=== PATIENT | male | born 1940 | race Caucasian/White ===

== ENCOUNTER 2020-05-07 18:41 | Inpatient (IN) | payer MEDICARE ==
[2020-05-07] MEDS ORDERED: SODIUM CHLORIDE 0.9% 1,000 ML IV STA (19:14)
[2020-05-07] MEDS ORDERED: KETOROLAC 15 MG/ML 1 ML VIAL IVP STA (19:16)
--- NOTE | 2020-05-07 19:18 | ED ---
SOB HPI - General Chief Complaint: Shortness of Breath Stated Complaint: Chemical Inhalation Time Seen by Provider: 05/07/20 18:50 Source: patient, RN notes reviewed Mode of arrival: ambulatory Limitations: no limitations - History of Present Illness Initial Comments: This is a 80-year-old male history of hypertension and diabetes who states he inhaled fumes from antifreeze in from his tractor that he was working on 2 days ago since that time is had burning type midsternal pain he sees more than 05/04. He denies any fevers chills or sweats he does have a cough. No phlegm production he has no prior history of any lung disease is a nonsmoker. No other complaints other modifying factors this time MD Complaint: shortness of breath, chest pain - Related Data Home Medications Medication Instructions Recorded Confirmed Centrum Silver 1 tab PO DAILY 08/16/14 08/16/14 Losartan/Hydrochlorothiazide 1 each PO DAILY 08/16/14 08/16/14 [Losartan-Hctz 100-25 mg Tab] Omeprazole [PriLOSEC] 20 mg PO AC-BRKFST 08/16/14 08/16/14 Simvastatin [Zocor] 40 mg PO HS 08/16/14 08/16/14 cloNIDine [Catapres-TTS] 1 each TRANSDERM Q7D 08/16/14 08/16/14 glipiZIDE [Glucotrol XL] 2.5 mg PO DAILY 08/16/14 08/16/14 sitaGLIPtin PHOS/metFORMIN HCL 1 each PO DAILY 08/16/14 08/16/14 [Janumet 50-1,000 mg Tablet] Previous Rx's Medication Instructions Recorded Cephalexin [Keflex] 500 mg PO Q6HR #40 cap 08/16/14 Docusate [Colace] 100 mg PO DAILY #30 capsule 08/16/14 HYDROcodone/APAP 5-325MG [[place]is 1 each PO Q4HR PRN #20 tab 08/16/14 5-325] Allergies Allergy/AdvReac Type Severity Reaction Status Date / Time No Known Allergies Allergy Verified 05/07/20 18:43 Review of Systems ROS Statement: Those systems with pertinent positive or pertinent negative responses have been documented in the HPI. ROS Other: All systems not noted in ROS Statement are negative. Past Medical History Past Medical History: Diabetes Mellitus, GERD/Reflux, Hyperlipidemia, Hypertension History of Any Multi-Drug Resistant Organisms: None Reported Past Surgical History: Back Surgery, Orthopedic Surgery Additional Past Surgical History / Comment(s): neck, shoulder Past Psychological History: No Psychological Hx Reported Smoking Status: Never smoker Past Alcohol Use History: None Reported Past Drug Use History: None Reported General Exam - General Exam Comments Initial Comments: This is a well-developed well-nourished awake alert oriented 3 male Limitations: no limitations General appearance: alert, anxious Head exam: Present: atraumatic, normocephalic, normal inspection Eye exam: Present: normal appearance, PERRL, EOMI. Absent: scleral icterus, conjunctival injection, periorbital swelling ENT exam: Present: normal exam, mucous membranes moist Neck exam: Present: normal inspection, full ROM. Absent: tenderness, menin gismus, lymphadenopathy Respiratory exam: Present: rales, decreased breath sounds. Absent: respiratory distress, wheezes, rhonchi, stridor Cardiovascular Exam: Present: normal rhythm, tachycardia, normal heart sounds. Absent: systolic murmur, diastolic murmur, rubs, gallop, clicks GI/Abdominal exam: Present: soft, normal bowel sounds. Absent: distended, tenderness, guarding, rebound, rigid Extremities exam: Present: normal inspection, full ROM, normal capillary refill. Absent: tenderness, pedal edema, joint swelling, calf tenderness Back exam: Present: normal inspection Neurological exam: Present: alert, oriented X3, CN II-XII intact Psychiatric exam: Present: normal affect, normal mood Skin exam: Present: warm, dry, intact, normal color. Absent: rash Course Vital Signs 05/07/20 05/07/20 05/07/20 18:44 19:42 21:09 Temperature 97.9 F Pulse Rate 114 H 96 81 Respiratory 18 20 18 Rate Blood Pressure 170/78 134/77 128/73 O2 Sat by Pulse 94 L 94 L 94 L Oximetry Medical Decision Making - Medical Decision Making I did discuss findings with the patient he will be admitted for treatment of bronchospasm and pneumonitis and pneumonia the case was discussed with Dr. Capone - Lab Data Result diagrams: 05/07/20 19:27 05/07/20 19:27 Lab Results 05/07/20 05/07/20 05/07/20 Range/Units 19:27 19:27 19:27 WBC 6.7 (3.8-10.6) k/uL RBC 4.28 L (4.30-5.90) m/uL Hgb 13.1 (13.0-17.5) gm/dL Hct 37.2 L (39.0-53.0) % MCV 86.9 (80.0-100.0) fL MCH 30.6 (25.0-35.0) pg MCHC 35.2 (31.0-37.0) g/dL RDW 12.0 (11.5-15.5) % Plt Count 339 (150-450) k/uL Neutrophils % 82 % Lymphocytes % 6 % Monocytes % 9 % Eosinophils % 0 % Basophils % 1 % Neutrophils # 5.5 (1.3-7.7) k/uL Lymphocytes # 0.4 L (1.0-4.8) k/uL Monocytes # 0.6 (0-1.0) k/uL Eosinophils # 0.0 (0-0.7) k/uL Basophils # 0.1 (0-0.2) k/uL PT 10.2 (9.0-12.0) sec INR 1.0 (<1.2) APTT 24.4 (22.0-30.0) sec D-Dimer 1.63 H (<0.60) mg/L FEU Sodium 127 L (137-145) mmol/L Potassium 3.7 (3.5-5.1) mmol/L Chloride 93 L (98-107) mmol/L Carbon Dioxide 24 (22-30) mmol/L Anion Gap 10 mmol/L BUN 14 (9-20) mg/dL Creatinine 0.92 (0.66-1.25) mg/dL Est GFR (CKD-EPI)AfAm >90 (>60 ml/min/1.73 sqM) Est GFR (CKD-EPI)NonAf 80 (>60 ml/min/1.73 sqM) Glucose 158 H (74-99) mg/dL Plasma Lactic Acid Antonio (0.7-2.0) mmol/L Calcium 7.8 L (8.4-10.2) mg/dL Magnesium 1.7 (1.6-2.3) mg/dL Total Bilirubin 1.8 H (0.2-1.3) mg/dL AST 56 (17-59) U/L ALT 39 (4-49) U/L Alkaline Phosphatase 66 (38-126) U/L Creatine Kinase 382 H (55-170) U/L Troponin I (0.000-0.034) ng/mL NT-Pro-B Natriuret Pep pg/mL Total Protein 6.4 (6.3-8.2) g/dL Albumin 3.5 (3.5-5.0) g/dL 05/07/20 05/07/20 05/07/20 Range/Units 19:27 19:27 19:27 WBC (3.8-10.6) k/uL RBC (4.30-5.90) m/uL Hgb (13.0-17.5) gm/dL Hct (39.0-53.0) % MCV (80.0-100.0) fL MCH (25.0-35.0) pg MCHC (31.0-37.0) g/dL RDW (11.5-15.5) % Plt Count (150-450) k/uL Neutrophils % % Lymphocytes % % Monocytes % % Eosinophils % % Basophils % % Neutrophils # (1.3-7.7) k/uL Lymphocytes # (1.0-4.8) k/uL Monocytes # (0-1.0) k/uL Eosinophils # (0-0.7) k/uL Basophils # (0-0.2) k/uL PT (9.0-12.0) sec INR (<1.2) APTT (22.0-30.0) sec D-Dimer (<0.60) mg/L FEU Sodium (137-145) mmol/L Potassium (3.5-5.1) mmol/L Chloride (98-107) mmol/L Carbon Dioxide (22-30) mmol/L Anion Gap mmol/L BUN (9-20) mg/dL Creatinine (0.66-1.25) mg/dL Est GFR (CKD-EPI)AfAm (>60 ml/min/1.73 sqM) Est GFR (CKD-EPI)NonAf (>60 ml/min/1.73 sqM) Glucose (74-99) mg/dL Plasma Lactic Acid Antonio 1.6 (0.7-2.0) mmol/L Calcium (8.4-10.2) mg/dL Magnesium (1.6-2.3) mg/dL Total Bilirubin (0.2-1.3) mg/dL AST (17-59) U/L ALT (4-49) U/L Alkaline Phosphatase (38-126) U/L Creatine Kinase (55-170) U/L Troponin I 0.018 (0.000-0.034) ng/mL NT-Pro-B Natriuret Pep 590 pg/mL Total Protein (6.3-8.2) g/dL Albumin (3.5-5.0) g/dL - EKG Data -: EKG Interpreted by Me EKG Comments: Sinus rhythm of 99. Interval was 74 QRS duration 94 QT since QTC 350/449 nonspecific anterior configuration - Radiology Data Radiology results: report reviewed (I did review the imaging and report evidence a left lower lobe infiltrate on x-ray CAT scan however reveals evidence of bilateral infiltrates no evidence of PE.), image reviewed Disposition Clinical Impression: Community acquired pneumonia, Pneumonitis, Bronchospasm, acute Disposition: ADMITTED IP TO THIS HOSP Condition: Fair Referrals: Nonstaff,Physician [Primary Care Provider] - 1-2 days
[2020-05-07 20:06] LABS: ALT 39 U/L (4-49); AST 56 U/L (17-59); African American GFR (CKD) >90 (>60 ml/min/1.73 sqM); Albumin 3.5 g/dL (3.5-5.0); Alkaline Phosphatase 66 U/L (38-126); Anion Gap 10 mmol/L; Blood Urea Nitrogen 14 mg/dL (9-20); Calcium 7.8 mg/dL (8.4-10.2); Carbon Dioxide 24 mmol/L (22-30); Chloride 93 mmol/L (98-107); Creatine Kinase 382 U/L (55-170); Glucose 158 mg/dL (74-99); Magnesium 1.7 mg/dL (1.6-2.3); Non-African American GFR(CKD) 80 (>60 ml/min/1.73 sqM); Partial Thromboplastin Time 24.4 sec (22.0-30.0); Potassium 3.7 mmol/L (3.5-5.1); Prothrombin Time 10.2 sec (9.0-12.0); Sodium 127 mmol/L (137-145); Total Bilirubin 1.8 mg/dL (0.2-1.3); Total Protein 6.4 g/dL (6.3-8.2)
[2020-05-07 20:11] LABS: D-Dimer 1.63 mg/L FEU (<0.60)
[2020-05-07 20:21] LABS: Basophils # (A) 0.1 k/uL (0-0.2); Basophils % (A) 1 %; Eosinophils % (A) 0 %; HCT 37.2 % (39.0-53.0); HGB 13.1 gm/dL (13.0-17.5); Lymphocytes # (A) 0.4 k/uL (1.0-4.8); Lymphocytes % (A) 6 %; MCH 30.6 pg (25.0-35.0); MCHC 35.2 g/dL (31.0-37.0); MCV 86.9 fL (80.0-100.0); Mean Platelet Volume 7.3; Monocytes # (A) 0.6 k/uL (0-1.0); Monocytes % (A) 9 %; Neutrophils # (A) 5.5 k/uL (1.3-7.7); Neutrophils % (A) 82 %; Platelet Count 339 k/uL (150-450); RBC 4.28 m/uL (4.30-5.90); WBC 6.7 k/uL (3.8-10.6)
--- NOTE | 2020-05-07 20:25 | XR ---
EXAMINATION TYPE: XR chest 2V DATE OF EXAM: 05/07/2020 COMPARISON: NONE HISTORY: Difficulty breathing. Dizziness TECHNIQUE: 2 views FINDINGS: There is no heart failure. There is some coarsening of the lung markings in the periphery o f both lungs. There is probably some mild airspace peripheral pulmonary infiltrate on the left side. There are chest leads. There is cervical spine fusion surgery. There is no pleural effusion. IMPRESSION: Left side mild peripheral pulmonary infiltrate. No heart failure.
--- NOTE | 2020-05-07 21:14 | CT ---
EXAMINATION TYPE: CT angio chest DATE OF EXAM: 05/07/2020 COMPARISON: None HISTORY: chest pain, elevated d-dimer CT DLP: 352.7 mGycm Automated exposure control for dose reduction was used. CONTRAST: Performed with IV Contrast, patient injected with 100 mL of Isovue 370. There are 3-D post processed images. There is patchy pulmonary airspace infiltrates and atelectasis in the mid and lower lung smith. Hear t is borderline enlarged. There is no pericardial effusion. There is no pleural effusion. There is no mediastinal adenopathy. There is normal contrast opacification of the pulmonary arteries. There are no filling defects. There are no hilar masses. Thoracic aorta shows no sign of aneurysm or dissection. There is spurring in the thoracic spine. Sternum is intact. The ribs appear intact. IMPRESSION: Patchy pulmonary bilateral airspace infiltrates. No evidence of pulmonary embolism.
[2020-05-07] MEDS ORDERED: PNEUMONIA PROTOCOL UTILIZED 1 EACH MISC PO PRN (21:20)
[2020-05-07] MEDS ORDERED: AZITHROMYCIN 500 MG in SODIUM CHLORIDE 0.9% 250 ML IVPB STA (21:20)
[2020-05-07] MEDS ORDERED: HYDROcodone/APAP 5-325MG 1 EACH TAB PO PRN (21:21)
[2020-05-07] MEDS ORDERED: IPRATROPIUM-ALBUTEROL 3 ML NEB INHALATION PRN (22:00)
[2020-05-07] MEDS: SODIUM CHLORIDE 0.9% 1,000 ML IV SCH (23:00)
[2020-05-08] MEDS: PANTOPRAZOLE 40 MG TABLET PO SCH (06:44)
[2020-05-08 06:50] LABS: Glucose,Whole Blood 111 mg/dL (75-99)
[2020-05-08] MEDS: SODIUM CHLORIDE 0.9% 1,000 ML IV SCH ×2 (08:11→08:12)
[2020-05-08] MEDS: INSULIN ASPART (NovoLOG) 100 UNIT/ML VIAL SQ SCH ×4 (08:11→20:42)
[2020-05-08] MEDS ORDERED: LOSARTAN-HCTZ 50-12.5 MG 1 EACH TAB PO SCH (09:00)
[2020-05-08] MEDS: metFORMIN 500 MG TAB PO SCH (09:32)
[2020-05-08] MEDS: MULTIVITAMINS, THERA 1 EACH TAB PO SCH (09:32)
--- NOTE | 2020-05-08 09:36 | XR ---
EXAMINATION TYPE: XR chest 2V DATE OF EXAM: 05/08/2020 COMPARISON: 05/07/2020 TECHNIQUE: PA and lateral views submitted. HISTORY: Cough possible pneumonia FINDINGS: Heart size normal. Coarsened interstitium seen. No pleural effusion or pneumothorax. Hypertrophic and degenerative change of the spine. IMPRESSION: 1. Correlate for atypical or interstitial pneumonitis or pneumonia.
[2020-05-08] MEDS: LINAGLIPTIN 5 MG TABLET PO SCH (10:42)
[2020-05-08] MEDS: DOCUSATE 100 MG CAP PO SCH (10:42)
[2020-05-08] MEDS ORDERED: INFLUENZA VACCINE (6 MOS+) 60 MCG/0.5 ML SYRINGE IM ONE (11:10)
[2020-05-08 11:35] LABS: Glucose,Whole Blood 181 mg/dL (75-99)
[2020-05-08] MEDS ORDERED: ALPRAZolam 0.25 MG TAB PO PRN (12:04)
[2020-05-08] MEDS ORDERED: MAGNESIUM SULFATE-D5W PMX 1 GM in DEXTROSE/WATER 1 100ML.BAG IVPB ONE (12:30)
--- NOTE | 2020-05-08 14:26 | P.HPIM ---
History of Present Illness 74-year-old pleasant male came in with complains of shortness of breath after inhaling anti-freeze fumes, antifreeze did fell on the tractor which the lead to fuming and patient did inhale that and since then patient was having shortness of breath and came. Patient had a CT angios the chest which didn't show significant bilateral infiltrates without any bronchogram no evidence of pneumonia patient denied any chest pain patient denied any cough fever chills. Patient was having some nausea and vomiting which improved at this time. Review of Systems REVIEW OF SYSTEMS: CONSTITUTIONAL: No fever, no malaise, no fatigue. HEENT: No recent visual problems or hearing problems. Denied any sore throat. CARDIOVASCULAR: No chest pain, orthopnea, PND, no palpitations, no syncope. PULMONARY: no hemoptysis. GASTROINTESTINAL: As mentioned in HPI NEUROLOGICAL: No headaches, no weakness, no numbness. HEMATOLOGICAL: Denies any bleeding or petechiae. GENITOURINARY: Denies any burning micturition, frequency, or urgency. MUSCULOSKELETAL/RHEUMATOLOGICAL: Denies any joint pain, swelling, or any muscle pain. ENDOCRINE: Denies any polyuria or polydipsia. The rest of the 14-point review of systems is negative. Past Medical History Past Medical History: Diabetes Mellitus, GERD/Reflux, Hyperlipidemia, Hypertension, Osteoarthritis (OA), Vascular Disorder Additional Past Medical History / Comment(s): NIDDM type II, benign colon edgar yps, bronchitis as a child, arthritis bilateral knees, bilateral leg varicosities. History of Any Multi-Drug Resistant Organisms: None Reported Past Surgical History: Back Surgery, Orthopedic Surgery Additional Past Surgical History / Comment(s): Cervical surgery/plate, 2 lower back surgeries, L shoulder rotator cuff, colonoscopies/benign polypectomies. Additional Past Anesthesia/Blood Transfusion Reaction / Comment(s): Pt had difficulty urinating after back surgery. Pt has clausterphobia. Smoking Status: Former smoker - Past Family History Father History Unknown: Yes Mother Family Medical History: Cancer Additional Family Medical History / Comment(s): Breast cancer. Medications and Allergies Home Medications Medication Instructions Recorded Confirmed Type Losartan/Hydrochlorothiazide 1 each PO DAILY 08/16/14 05/07/20 History [Losartan-Hctz 100-25 mg Tab] Simvastatin [Zocor] 40 mg PO HS 08/16/14 05/07/20 History cloNIDine [Catapres-TTS] 1 patch TRANSDERM Q7D 08/16/14 05/07/20 History sitaGLIPtin PHOS/metFORMIN HCL 1 each PO BID 08/16/14 05/07/20 History [Janumet 50-1,000 mg Tablet] Pantoprazole [Protonix] 40 mg PO DAILY 05/07/20 05/07/20 History glipiZIDE XL [Glucotrol XL] 5 mg PO DAILY 05/07/20 05/07/20 History Allergies Allergy/AdvReac Type Severity Reaction Status Date / Time No Known Allergies Allergy Verified 05/07/20 23:07 Physical Exam Vitals: Vital Signs Temp Pulse Pulse Resp BP BP Pulse Ox 05/08/20 07:00 99.6 F 96 16 126/66 93 L 05/08/20 06:46 99 F 88 18 142/80 05/08/20 05:36 99.5 F 92 18 139/77 92 L 05/08/20 04:00 82 18 05/08/20 03:00 84 18 143/78 05/08/20 02:00 80 18 05/07/20 22:08 86 18 136/78 96 05/07/20 21:09 81 18 128/73 94 L 05/07/20 19:42 96 20 134/77 94 L 05/07/20 18:44 97.9 F 114 H 18 170/78 94 L Intake and Output 05/07/20 05/08/20 05/08/20 22:59 06:59 14:59 Intake Total 540 Output Total 2 Balance 538 Intake: Oral 540 Output: Stool 2 Other: Voiding Method Toilet Urinal # Voids 3 Weight 90.718 kg 90.718 kg PHYSICAL EXAMINATION: GENERAL: The patient is alert and oriented x3, not in any acute distress. Well developed, well nourished. HEENT: Pupils are round and equally reacting to light. EOMI. No scleral icterus. No conjunctival pallor. Normocephalic, atraumatic. No pharyngeal erythema. No thyromegaly. CARDIOVASCULAR: S1 and S2 present. No murmurs, rubs, or gallops. PULMONARY: Chest is clear to auscultation, no wheezing or crackles. ABDOMEN: Soft, nontender, nondistended, normoactive bowel sounds. No palpable organomegaly. MUSCULOSKELETAL: No joint swelling or deformity. EXTREMITIES: No cyanosis, clubbing, or pedal edema. NEUROLOGICAL: Gross neurological examination did not reveal any focal deficits. SKIN: No rashes. Results CBC & Chem 7: 05/07/20 19:27 05/07/20 19:27 Labs: Abnormal Lab Results - Last 24 Hours (Table) 05/07/20 05/07/20 05/07/20 Range/Units 19:27 19:27 19:27 RBC 4.28 L (4.30-5.90) m/uL Hct 37.2 L (39.0-53.0) % Lymphocytes # 0.4 L (1.0-4.8) k/uL D-Dimer 1.63 H (<0.60) mg/L FEU Sodium 127 L (137-145) mmol/L Chloride 93 L (98-107) mmol/L Glucose 158 H (74-99) mg/dL POC Glucose (mg/dL) (75-99) mg/dL Calcium 7.8 L (8.4-10.2) mg/dL Total Bilirubin 1.8 H (0.2-1.3) mg/dL Creatine Kinase 382 H (55-170) U/L 05/08/20 05/08/20 Range/Units 06:48 11:34 RBC (4.30-5.90) m/uL Hct (39.0-53.0) % Lymphocytes # (1.0-4.8) k/uL D-Dimer (<0.60) mg/L FEU Sodium (137-145) mmol/L Chloride (98-107) mmol/L Glucose (74-99) mg/dL POC Glucose (mg/dL) 111 H 181 H (75-99) mg/dL Calcium (8.4-10.2) mg/dL Total Bilirubin (0.2-1.3) mg/dL Creatine Kinase (55-170) U/L Thrombosis Risk Factor Assmnt - Choose All That Apply Any of the Below Risk Factors Present?: Yes Each Factor Represents 1 point: Obesity (BMI >25), Serious lung disease incl. pneumonia (< 1month) Other Risk Factors: Yes Each Risk Factor Represents 3 Points: Age 75 years or older Other congenital or acquired thrombophilia - If yes, enter type in comment: No Thrombosis Risk Factor Assessment Total Risk Factor Score: 5 Thrombosis Risk Factor Assessment Level: High Risk Assessment and Plan Plan: -Chemical pneumonitis: Secondary to fever and inhalation anti-medics will not be beneficial and medics will be discontinued and patient the will be continued with supportive care Cannula oxygen as needed patient is not wheezing at this time. If needed we can use steroids. -Hyponatremia secondary to nausea vomiting: Patient will be started on Protonix and Maalox. Patient will be continued on IV fluids patient has hypovolemic hyponatremia -Gastroesophageal reflux disease -Type 2 diabetes mellitus -Hypertension -Hyperlipidemia -Peripheral vascular disease -DVT prophylaxis with Lovenox and GI prophylaxis with Protonix. Patient probably can be discharged tomorrow once his hyponatremia improves and if his respiratory status remained stable
[2020-05-08] MEDS: SIMETHICONE 80 MG CHEWABLE PO SCH ×3 (14:27→21:55)
[2020-05-08] MEDS ORDERED: ACETAMINOPHEN TAB 325 MG TAB PO STA (15:59)
[2020-05-08 17:07] LABS: Glucose,Whole Blood 102 mg/dL (75-99)
[2020-05-08 20:14] LABS: Glucose,Whole Blood 197 mg/dL (75-99)
[2020-05-08] MEDS: ATORVASTATIN 20 MG TAB PO SCH (21:55)
[2020-05-08] MEDS ORDERED: AZITHROMYCIN 500 MG TAB PO SCH (22:00)
[2020-05-09] MEDS: SODIUM CHLORIDE 0.9% 1,000 ML IV SCH ×2 (05:15→14:51)
[2020-05-09] MEDS ORDERED: ACETAMINOPHEN TAB 325 MG TAB PO PRN (06:32)
[2020-05-09 06:50] LABS: Glucose,Whole Blood 197 mg/dL (75-99)
[2020-05-09] MEDS: DOCUSATE 100 MG CAP PO SCH (07:13)
[2020-05-09] MEDS ORDERED: ONDANSETRON 4 MG/2 ML VIAL IVP PRN (07:37)
[2020-05-09] MEDS: INSULIN ASPART (NovoLOG) 100 UNIT/ML VIAL SQ SCH ×4 (07:38→21:10)
[2020-05-09] MEDS: PANTOPRAZOLE 40 MG TABLET PO SCH (07:38)
[2020-05-09] MEDS: metFORMIN 500 MG TAB PO SCH (07:38)
[2020-05-09] MEDS: SIMETHICONE 80 MG CHEWABLE PO SCH ×4 (07:38→21:09)
[2020-05-09] MEDS: ENOXAPARIN 40 MG/0.4 ML SYRINGE SQ SCH (07:38)
[2020-05-09] MEDS: MULTIVITAMINS, THERA 1 EACH TAB PO SCH (07:38)
[2020-05-09] MEDS: LINAGLIPTIN 5 MG TABLET PO SCH (07:39)
[2020-05-09 09:53] LABS: African American GFR (CKD) 94.5 (60.0-200.0); Anion Gap 11.9 mmol/L (4.00-12.00); BUN/Creat Ratio 11.11 Ratio (12.00-20.00); Calcium 7.4 mg/dL (8.7-10.3); Carbon Dioxide 23.1 mmol/L (21.6-31.8); Non-African American GFR(CKD) 81.5 (60.0-200.0)
--- NOTE | 2020-05-09 11:22 | P.PN ---
Subjective 82-year-old male is admitted after inhalation of antifreeze. Patient is believed to have a chemical pneumonitis because of which initially I didn't start him on antibiotics although his antibiotics were discontinued from ER. Patient started having fever multiple febrile episodes started having diarrhea C. diff is being obtained patient will be tested for Covid 19. Will be continued on Rocephin. Infectious disease will be consulted. Patient doesn't feel well at this time is diaphoretic. We may need pulmonary consultation as well. Constitutional: As mentioned in HPI Cardio vascular: denied any chest pain, palpitations Gastrointestinal denied any nausea vomiting Pulmonary: As mentioned in HPI Neurologic denied any new focal deficits All inpatient medications were reviewed and appropriate changes in these medications as dictated in the interval history and assessment and plan. Objective - Vital Signs Vital signs: Vital Signs Temp 99.5 F 05/09/20 07:22 Pulse 100 05/09/20 07:22 Resp 16 05/09/20 08:00 BP 154/69 05/09/20 07:22 Pulse Ox 91 L 05/09/20 07:22 Intake & Output 05/08/20 05/09/20 05/09/20 18:59 06:59 18:59 Intake Total 540 540 Output Total 4 Balance 536 540 Weight 90.718 kg Intake: Oral 540 540 Output: Stool 4 Other: Voiding Method Toilet Urinal # Voids 3 3 # Bowel Movements 3 - Exam PHYSICAL EXAMINATION: GENERAL: The patient is alert and oriented x3, not in any acute distress. Well developed, well nourished. She does diaphragmatic fatigue HEENT: Pupils are round and equally reacting to light. EOMI. No scleral icterus. No conjunctival pallor. Normocephalic, atraumatic. No pharyngeal erythema. No thyromegaly. CARDIOVASCULAR: S1 and S2 present. No murmurs, rubs, or gallops. PULMONARY: Chest is clear to auscultation, no wheezing or crackles. ABDOMEN: Soft, nontender, nondistended, normoactive bowel sounds. No palpable organomegaly. MUSCULOSKELETAL: No joint swelling or deformity. EXTREMITIES: No cyanosis, clubbing, or pedal edema. NEUROLOGICAL: Gross neurological examination did not reveal any focal deficits. SKIN: No rashes. - Labs CBC & Chem 7: 05/07/20 19:27 05/09/20 05:35 Labs: Abnormal Lab Results - Last 24 Hours (Table) 05/08/20 05/08/20 05/08/20 Range/Units 11:34 17:05 20:12 Sodium (135-145) mmol/L BUN/Creatinine Ratio (12.00-20.00) Ratio Glucose (70-110) mg/dL POC Glucose (mg/dL) 181 H 102 H 197 H (75-99) mg/dL Calcium (8.7-10.3) mg/dL 05/09/20 05/09/20 Range/Units 05:35 06:47 Sodium 131 L (135-145) mmol/L BUN/Creatinine Ratio 11.11 L (12.00-20.00) Ratio Glucose 178 H (70-110) mg/dL POC Glucose (mg/dL) 197 H (75-99) mg/dL Calcium 7.4 L (8.7-10.3) mg/dL Microbiology - Last 24 Hours (Table) 05/07/20 21:08 Blood Culture - Preliminary Blood No Growth after 24 hours Assessment and Plan Plan: -Sepsis: Patient was initially believed to have chemical pneumonitis, patient will continued on Rocephin will be treated for pneumonia and other sources of sepsis is being C. diff colitis which will be ruled out patient was having significant diarrhea IV fluids will be continued. Patient will be tested for Covid 19 -Chemical pneumonitis: Secondary to anti-freeze inhalation , patient can have fever with antifreeze inhalation. Continue with respirator support will consult pulmonary -Hyponatremia secondary to nausea vomiting and diarrhea: Hypervolemic hyponatremia IV fluids and monitor. -Gastroesophageal reflux disease -Type 2 diabetes mellitus -Hypertension -Hyperlipidemia -Peripheral vascular disease -DVT prophylaxis with Lovenox and GI prophylaxis with Protonix. Patient probably can be discharged tomorrow once his hyponatremia improves and if his respiratory status remained stable
[2020-05-09 11:36] LABS: Glucose,Whole Blood 177 mg/dL (75-99)
[2020-05-09 11:47] LABS: Basophils % (A) 1 %; Eosinophils % (A) 0 %; HCT 38.2 % (39.0-53.0); HGB 12.5 gm/dL (13.0-17.5); Lymphocytes # (A) 0.4 k/uL (1.0-4.8); Lymphocytes % (A) 7 %; MCH 29.6 pg (25.0-35.0); MCHC 32.8 g/dL (31.0-37.0); MCV 90.3 fL (80.0-100.0); Mean Platelet Volume 6.9; Monocytes # (A) 0.4 k/uL (0-1.0); Monocytes % (A) 7 %; Neutrophils # (A) 5.5 k/uL (1.3-7.7); Neutrophils % (A) 84 %; Platelet Count 428 k/uL (150-450); RBC 4.23 m/uL (4.30-5.90); RDW 12.7 % (11.5-15.5); WBC 6.5 k/uL (3.8-10.6)
[2020-05-09 12:02] LABS: C Reactive Protein 77.7 mg/L (<10.0)
[2020-05-09] MEDS: dexAMETHasone 4 MG TAB PO SCH (12:39)
--- NOTE | 2020-05-09 13:47 | P.CNPUL ---
History of Present Illness Consult date: 05/09/20 Requesting physician: Elizabeth Chery Reason for consult: dyspnea, cough Chief complaint: Dyspnea, cough, fever History of present illness: 80-year-old white male patient, with past history of hypertension, diabetes mellitus type 2, hyperlipidemia, GERD/reflux, lifetime nonsmoker, who presented to the emergency department on 05/07/2020 for evaluation of shortness of breath, cough with the onset of 2 days prior to presentation. Apparently patient had inhaled some fumes from the antifreeze from his tractor when he was working on it. Immediately after she started experiencing burning in his midsternal pain and his esophagus, which had improved. He denied any fever or chills, denied an y sweats, he did develop a cough, was nonproductive. Has no history of chronic lung disease and he is a lifetime nonsmoker. No nausea vomiting or diarrhea, he denies any cold 19 exposure. In the following 2 days patient became short of breath, started coughing, became weak, started having runs of diarrhea and generalized aches. [facility]ency department chest x-ray shows mild peripheral pulmonary infiltrate in the left lung. He CBC was reviewed showing no leukocytosis, but did show lymphopenia with the lymphocyte count of 0.4, d-dimer was elevated at 1.63, sodium was 127, potassium 3.7, chloride is 93, renal profile was within normal limits. Rectal Was 1.6, LDH was elevated at 860, troponin was 0.018, proBNP was 590, C. diff was negative. Patient is being tested for COVID 19, and the results are pending at this time, patient is on room air, the pulse ox of 93%, patient was initially afebrile, did develop fever overnight, with a T-max of 101.1F. Antibiotics in the form of Rocephin, pat ient will be started on oral Decadron, he is on breathing treatments, he is on prophylactic dose of Lovenox. CTA chest was completed in view of elevated d- dimer and chest discomfort on presentation showing patchy pulmonary bilateral airspace infiltrates, but no evidence of pulmonary embolism. Review of Systems All systems: negative Constitutional: Denies chills, Denies fever Eyes: denies blurred vision, denies pain Ears, nose, mouth and throat: Denies headache, Denies sore throat Cardiovascular: Reports chest pain, Denies shortness of breath Respiratory: Reports cough, Reports dyspnea Gastrointestinal: Denies abdominal pain, Denies diarrhea, Denies nausea, Denies vomiting Musculoskeletal: Denies myalgias Integumentary: Denies pruritus, Denies rash Neurological: Denies numbness, Denies weakness Psychiatric: Denies anxiety, Denies depression Endocrine: Denies fatigue, Denies weight change Past Medical History Past Medical History: Diabetes Mellitus, GERD/Reflux, Hyperlipidemia, Hypertension, Osteoarthritis (OA), Vascular Disorder Additional Past Medical History / Comment(s): NIDDM type II, benign colon polyps, bronchitis as a child, arthritis bilateral knees, bilateral leg varicosities. History of Any Multi-Drug Resistant Organisms: None Reported Past Surgical History: Back Surgery, Orthopedic Surgery Additional Past Surgical History / Comment(s): Cervical surgery/plate, 2 lower back surgeries, L shoulder rotator cuff, colonoscopies/benign polypectomies. Additional Past Anesthesia/Blood Transfusion Reaction / Comment(s): Pt had difficulty urinating after back surgery. Pt has clausterphobia. Smoking Status: Former smoker - Past Family History Father History Unknown: Yes Mother Family Medical History: Cancer Additional Family Medical History / Comment(s): Breast cancer. Medications and Allergies Home Medications Medication Instructions Recorded Confirmed Type Losartan/Hydrochlorothiazide 1 each PO DAILY 08/16/14 05/07/20 History [Losartan-Hctz 100-25 mg Tab] Simvastatin [Zocor] 40 mg PO HS 08/16/14 05/07/20 History cloNIDine [Catapres-TTS] 1 patch TRANSDERM Q7D 08/16/14 05/07/20 History sitaGLIPtin PHOS/metFORMIN HCL 1 each PO BID 08/16/14 05/07/20 History [Janumet 50-1,000 mg Tablet] Pantoprazole [Protonix] 40 mg PO DAILY 05/07/20 05/07/20 History glipiZIDE XL [Glucotrol XL] 5 mg PO DAILY 05/07/20 05/07/20 History Allergies Allergy/AdvReac Type Severity Reaction Status Date / Time No Known Allergies Allergy Verified 05/07/20 23:07 Physical Exam Vitals: Vital Signs Temp Pulse Pulse Pulse Resp BP Pulse Ox 05/09/20 08:00 16 05/09/20 07:22 99.5 F 100 16 154/69 91 L 05/09/20 00:56 101.0 F H 109 H 165/93 93 L 05/08/20 23:11 16 05/08/20 19:05 99.4 F 99 149/79 95 05/08/20 16:15 100.6 F H 87 16 118/64 96 05/08/20 16:00 101.1 F H 05/08/20 15:45 90 16 05/08/20 15:38 91 16 05/08/20 15:00 100.9 F H 101 H 18 146/73 96 05/08/20 14:32 96 16 Intake and Output 05/08/20 05/09/20 05/09/20 22:59 06:59 14:59 Intake Total 540 Balance 540 Intake: Oral 540 Other: # Voids 2 3 # Bowel Movements 3 GENERAL EXAM: Alert, very pleasant, white male, on room air, with pulse ox of 91-93% comfortable in no apparent distress. HEAD: Normocephalic/atraumatic. EYES: Normal reaction of pupils, equal size. Conjunctiva pink, sclera white. NOSE: Clear with pink turbinates. THROAT: No erythema or exudates. NECK: No masses, no JVD, no thyroid enlargement, no adenopathy. CHEST: No chest wall deformity. Symmetrical expansion. LUNGS: Equal air entry with no crackles, wheeze, rhonchi or dullness. CVS: Regular rate and rhythm, normal S1 and S2, no gallops, no murmurs, no rubs ABDOMEN: Soft, nontender. No hepatosplenomegaly, normal bowel sounds, no guarding or rigidity. EXTREMITIES: No clubbing, no edema, no cyanosis, 2+ pulses and upper and lower extremities. MUSCULOSKELETAL: Muscle strength and tone normal. SPINE: No scoliosis or deformity SKIN: No rashes CENTRAL NERVOUS SYSTEM: Alert and oriented -3. No focal deficits, tone is normal in all 4 extremities. PSYCHIATRIC: Alert and oriented -3. Appropriate affect. Intact judgment and insight. Results - Laboratory Findings CBC and BMP: 05/09/20 11:19 05/09/20 05:35 PT/INR, D-dimer PT 10.2 sec (9.0-12.0) 05/07/20 19:27 INR 1.0 (<1.2) 05/07/20 19:27 D-Dimer 1.52 mg/L FEU (<0.60) H 05/09/20 11:19 Abnormal lab findings: Abnormal Labs 05/07/20 05/07/20 05/07/20 19:27 19:27 19:27 RBC 4.28 L Hgb Hct 37.2 L Lymphocytes # 0.4 L D-Dimer 1.63 H Sodium 127 L Chloride 93 L BUN/Creatinine Ratio Glucose 158 H POC Glucose (mg/dL) Calcium 7.8 L Total Bilirubin 1.8 H Lactate Dehydrogenase Creatine Kinase 382 H C-Reactive Protein 05/08/20 05/08/20 05/08/20 06:48 11:34 17:05 RBC Hgb Hct Lymphocytes # D-Dimer Sodium Chloride BUN/Creatinine Ratio Glucose POC Glucose (mg/dL) 111 H 181 H 102 H Calcium Total Bilirubin Lactate Dehydrogenase Creatine Kinase C-Reactive Protein 05/08/20 05/09/20 05/09/20 20:12 05:35 06:47 RBC Hgb Hct Lymphocytes # D-Dimer Sodium 131 L Chloride BUN/Creatinine Ratio 11.11 L Glucose 178 H POC Glucose (mg/dL) 197 H 197 H Calcium 7.4 L Total Bilirubin Lactate Dehydrogenase Creatine Kinase C-Reactive Protein 05/09/20 05/09/20 05/09/20 11:19 11:19 11:19 RBC 4.23 L Hgb 12.5 L Hct 38.2 L Lymphocytes # 0.4 L D-Dimer 1.52 H Sodium Chloride BUN/Creatinine Ratio Glucose POC Glucose (mg/dL) Calcium Total Bilirubin Lactate Dehydrogenase 860 H Creatine Kinase C-Reactive Protein 77.7 H 05/09/20 11:33 RBC Hgb Hct Lymphocytes # D-Dimer Sodium Chloride BUN/Creatinine Ratio Glucose POC Glucose (mg/dL) 177 H Calcium Total Bilirubin Lactate Dehydrogenase Creatine Kinase C-Reactive Protein - Diagnostic Findings Chest x-ray: report reviewed, image reviewed CT scan - chest: report reviewed, image reviewed Assessment and Plan Plan: Assessment: #1. Dyspnea, midsternal chest discomfort, cough, likely related to possibility of chemical pneumonitis after inhalation of antifreeze 2 days prior to presentation. Chest x-ray showed left sided mild peripheral pulmonary infiltrates. Patient has developed a fever in the last 24 hours, and his cough persists. Rule out possibility of a cold with 19 pneumonitis #2. Elevated d-dimer, CT chest showed no evidence of pulmonary embolism, and showed patchy pulmonary bilateral airspace infiltrates. #3. Hypertension #4. Lipidemia #5. Diabetes mellitus type 2 #6. Lifetime nonsmoker #7. GERD/reflux Plan: We will add oral Decadron 6 mg daily for 10 days course, continue empiric antibiotics, Covid19 testing was sent and is pending at this time, maintain in precautions, continue prophylactic dose of Lovenox, continue gentle hydration, nebulized bronchodilators. Monitor febrile pattern. ID service is following, pro-calcitonin has been sent, Legionella antigen has been ordered. We'll continue to follow I performed a history & physical examination of the patient and discussed their management with my nurse practitioner, Bella Steel. I reviewed the nurse practitioner's note and agree with the documented findings and plan of care. Lung sounds are positive for diminlished breath sounds. The findings and the impression was discussed with the patient. I attest to the documentation by the nurse practitioner. Time with Patient: Greater than 30
[2020-05-09 14:36] VITALS: BMI 27.1
[2020-05-09 16:44] LABS: Glucose,Whole Blood 238 mg/dL (75-99)
[2020-05-09] MEDS: CHOLESTYRAMINE (WITH SUGAR) 4 GM PACKET PO SCH ×2 (17:34→17:42)
[2020-05-09 20:39] LABS: Glucose,Whole Blood 299 mg/dL (75-99)
[2020-05-09] MEDS: ATORVASTATIN 20 MG TAB PO SCH (21:09)
[2020-05-09 22:14] LABS: Hemoglobin A1C 7.7 % (4.0-6.0)
[2020-05-09] MEDS ORDERED: AZITHROMYCIN 500 MG in SODIUM CHLORIDE 0.9% 250 ML IVPB ONE (23:30)
--- NOTE | 2020-05-09 23:33 | P.CONS ---
History of Present Illness - Reason for Consult Consult date: 05/09/20 Sepsis Requesting physician: Elizabeth Chery - Chief Complaint Shortness of breath diarrhea x few days - History of Present Illness Patient is a 80-year-old male with a past medical history significant for diabetes mellitus presenting to the ER at [facility] yesterday evening for evaluation of increasing shortness of breath and diarrhea patient mentioned a few days ago he did inhale and decrease of his tractor that he was working on a sepsis or having substernal chest pain more of a shop in nature almost 10 out of 10 patient denies significant cough or sputum production denies any nausea or vomiting has been complaining of diarrhea with multiple loose stool no blood or mucus in the stool with these symptoms and the patient presented to the hospital on arrival to the emergency room patient was afebrile subsequently spiked a fever of 101F, patient did have a normal white count with lymphopenia kidney function was normal liver enzymes normal, CRP was elevated chest x-ray did shows left-sided mild peripheral pulmonary infiltrate patient did have a CT abdomen that was negative for PE diffuse bilateral pulmonary infiltrate patient has been admitted to the hospital infectious disease has been consulted for further management Review of Systems Positive point has been mentioned in the HPI rest of the systems are negative Past Medical History Past Medical History: Diabetes Mellitus, GERD/Reflux, Hyperlipidemia, Hypertension, Osteoarthritis (OA), Vascular Disorder Additional Past Medical History / Comment(s): NIDDM type II, benign colon po lyps, bronchitis as a child, arthritis bilateral knees, bilateral leg varicosities. History of Any Multi-Drug Resistant Organisms: None Reported Past Surgical History: Back Surgery, Orthopedic Surgery Additional Past Surgical History / Comment(s): Cervical surgery/plate, 2 lower back surgeries, L shoulder rotator cuff, colonoscopies/benign polypectomies. Additional Past Anesthesia/Blood Transfusion Reaction / Comm: Pt had difficulty urinating after back surgery. Pt has clausterphobia. Smoking Status: Former smoker - Past Family History Father History Unknown: Yes Mother Family Medical History: Cancer Additional Family Medical History / Comment(s): Breast cancer. Medications and Allergies Home Medications Medication Instructions Recorded Confirmed Type Losartan/Hydrochlorothiazide 1 each PO DAILY 08/16/14 05/07/20 History [Losartan-Hctz 100-25 mg Tab] Simvastatin [Zocor] 40 mg PO HS 08/16/14 05/07/20 History cloNIDine [Catapres-TTS] 1 patch TRANSDERM Q7D 08/16/14 05/07/20 History sitaGLIPtin PHOS/metFORMIN HCL 1 each PO BID 08/16/14 05/07/20 History [Janumet 50-1,000 mg Tablet] Pantoprazole [Protonix] 40 mg PO DAILY 05/07/20 05/07/20 History glipiZIDE XL [Glucotrol XL] 5 mg PO DAILY 05/07/20 05/07/20 History Allergies Allergy/AdvReac Type Severity Reaction Status Date / Time No Known Allergies Allergy Verified 05/07/20 23:07 Physical Exam Vitals: Vital Signs Temp Pulse Resp BP Pulse Ox 05/09/20 14:19 98 F 106 H 16 172/80 95 05/09/20 08:00 16 05/09/20 07:22 99.5 F 100 16 154/69 91 L 05/09/20 00:56 101.0 F H 109 H 165/93 93 L 05/08/20 23:11 16 05/08/20 19:05 99.4 F 99 149/79 95 Intake and Output 05/09/20 05/09/20 05/09/20 06:59 14:59 22:59 Intake Total 1080 Balance 1080 Intake: Oral 1080 Other: # Voids 3 3 # Bowel Movements 3 3 Weight 90.718 kg GENERAL DESCRIPTION: An elderly male lying in bed, no distress. No tachypnea or accessory muscle of respiration use. HEENT: Shows Pallor , no scleral icterus. Oral mucous membrane is dry. No pharyngeal erythema or thrush NECK: Trachea central, no thyromegaly. LUNGS: Unlabored breathing. Decreased intensity of breath sounds. No wheeze or crackle. HEART: S1, S2, regular rate and rhythm. No loud murmur ABDOMEN: Soft, no tenderness , guarding or rigidity, no organomegaly EXTREMITIES: No edema of feet. SKIN: No rash, no masses palpable. NEUROLOGICAL: The patient is awake, alert, oriented x3, mood and affect normal. Results CBC & Chem 7: 05/09/20 11:19 05/09/20 05:35 Labs: Abnormal Lab Results - Last 24 Hours (Table) 05/08/20 05/09/20 05/09/20 Range/Units 20:12 05:35 06:47 RBC (4.30-5.90) m/uL Hgb (13.0-17.5) gm/dL Hct (39.0-53.0) % Lymphocytes # (1.0-4.8) k/uL D-Dimer (<0.60) mg/L FEU Sodium 131 L (135-145) mmol/L BUN/Creatinine Ratio 11.11 L (12.00-20.00) Ratio Glucose 178 H (70-110) mg/dL POC Glucose (mg/dL) 197 H 197 H (75-99) mg/dL Calcium 7.4 L (8.7-10.3) mg/dL Lactate Dehydrogenase (313-618) U/L C-Reactive Protein (<10.0) mg/L 05/09/20 05/09/20 05/09/20 Range/Units 11:19 11:19 11:19 RBC 4.23 L (4.30-5.90) m/uL Hgb 12.5 L (13.0-17.5) gm/dL Hct 38.2 L (39.0-53.0) % Lymphocytes # 0.4 L (1.0-4.8) k/uL D-Dimer 1.52 H (<0.60) mg/L FEU Sodium (135-145) mmol/L BUN/Creatinine Ratio (12.00-20.00) Ratio Glucose (70-110) mg/dL POC Glucose (mg/dL) (75-99) mg/dL Calcium (8.7-10.3) mg/dL Lactate Dehydrogenase 860 H (313-618) U/L C-Reactive Protein 77.7 H (<10.0) mg/L 05/09/20 05/09/20 Range/Units 11:33 16:42 RBC (4.30-5.90) m/uL Hgb (13.0-17.5) gm/dL Hct (39.0-53.0) % Lymphocytes # (1.0-4.8) k/uL D-Dimer (<0.60) mg/L FEU Sodium (135-145) mmol/L BUN/Creatinine Ratio (12.00-20.00) Ratio Glucose (70-110) mg/dL POC Glucose (mg/dL) 177 H 238 H (75-99) mg/dL Calcium (8.7-10.3) mg/dL Lactate Dehydrogenase (313-618) U/L C-Reactive Protein (<10.0) mg/L Microbiology - Last 24 Hours (Table) 05/07/20 21:08 Blood Culture - Preliminary Blood No Growth after 24 hours Assessment and Plan Assessment: 1- patient presented to the hospital with increasing shortness of breath eyal rrhea in this patient who did have a fever normal white count lymphopenia elevated CRP , d-dimer and a normal pro-calcitonin with evidence of bilateral pulmonary infiltrate high clinical suspicious for acute Covid 19 infection (1) Pneumonitis Current Visit: Yes Status: Acute Code(s): J18.9 - PNEUMONIA, UNSPECIFIED ORGANISM SNOMED Code(s): 986429079 Plan: 1- await [place] PCR to be completed 2-patient to continue her with Lovenox dexamethasone zinc and urine and Zithromax 3-Questran for symptomatic relief of his diarrhea 4-droplet isolation and respiratory support We will follow on clinical condition and cultures to further adjust medication if needed Thank you for this consultation will follow this patient with you Time with Patient: Greater than 30
[2020-05-10] MEDS: SODIUM CHLORIDE 0.9% 1,000 ML IV SCH ×3 (01:20→22:27)
[2020-05-10 06:10] LABS: HGB 11.9 gm/dL (13.0-17.5); MCH 29.8 pg (25.0-35.0); MCHC 32.9 g/dL (31.0-37.0); MCV 90.5 fL (80.0-100.0); Mean Platelet Volume 6.9; Platelet Count 454 k/uL (150-450); RBC 3.98 m/uL (4.30-5.90); RDW 12.8 % (11.5-15.5); WBC 7.5 k/uL (3.8-10.6)
[2020-05-10 07:24] LABS: Glucose,Whole Blood 225 mg/dL (75-99)
[2020-05-10] MEDS: dexAMETHasone 4 MG TAB PO SCH (07:45)
[2020-05-10] MEDS: SIMETHICONE 80 MG CHEWABLE PO SCH ×4 (07:45→20:52)
[2020-05-10] MEDS: MULTIVITAMINS, THERA 1 EACH TAB PO SCH (07:46)
[2020-05-10] MEDS: PANTOPRAZOLE 40 MG TABLET PO SCH (07:46)
[2020-05-10] MEDS: DOCUSATE 100 MG CAP PO SCH (07:46)
[2020-05-10] MEDS: INSULIN ASPART (NovoLOG) 100 UNIT/ML VIAL SQ SCH ×4 (07:46→20:51)
[2020-05-10] MEDS: CHOLESTYRAMINE (WITH SUGAR) 4 GM PACKET PO SCH ×3 (07:47→17:23)
[2020-05-10] MEDS: ENOXAPARIN 40 MG/0.4 ML SYRINGE SQ SCH (07:47)
[2020-05-10] MEDS: LINAGLIPTIN 5 MG TABLET PO SCH (07:48)
[2020-05-10 09:56] LABS: African American GFR (CKD) 94.5 (60.0-200.0); Anion Gap 10.3 mmol/L (4.00-12.00); BUN/Creat Ratio 8.89 Ratio (12.00-20.00); Calcium 7.8 mg/dL (8.7-10.3); Carbon Dioxide 22.7 mmol/L (21.6-31.8); Non-African American GFR(CKD) 81.5 (60.0-200.0); Potassium 4.2 mmol/L (3.5-5.5)
[2020-05-10 11:08] LABS: Glucose,Whole Blood 260 mg/dL (75-99)
[2020-05-10 12:15] LABS: Glucose,Whole Blood 254 mg/dL (75-99)
--- NOTE | 2020-05-10 12:48 | P.PN ---
Subjective Progress Note Date: 05/10/20 Principal diagnosis: Shortness of breath, cough, chemical pneumonitis versus COVID 19 pneumonitis 80-year-old white male patient, with past history of hypertension, diabetes mellitus type 2, hyperlipidemia, GERD/reflux, lifetime nonsmoker, who presented to the emergency department on 05/07/2020 for evaluation of shortness of breath, cough with the onset of 2 days prior to presentation. Apparently patient had inhaled some fumes from the antifreeze from his tractor when he was working on it. Immediately after she started experiencing burning in his midsternal pain and his esophagus, which had improved. He denied any fever or chills, denied any sweats, he did develop a cough, was nonproductive. Has no history of chronic lung disease and he is a lifetime nonsmoker. No nausea vomiting or diarrhea, he denies any cold 19 exposure. In the following 2 days patient becam e short of breath, started coughing, became weak, started having runs of diarrhea and generalized aches. Urgency department chest x-ray shows mild peripheral pulmonary infiltrate in the left lung. He CBC was reviewed showing no leukocytosis, but did show lymphopenia with the lymphocyte count of 0.4, d- dimer was elevated at 1.63, sodium was 127, potassium 3.7, chloride is 93, renal profile was within normal limits. Rectal Was 1.6, LDH was elevated at 860, troponin was 0.018, proBNP was 590, C. diff was negative. Patient is being tested for COVID 19, and the results are pending at this time, patient is on room air, the pulse ox of 93%, patient was initially afebrile, did develop fever overnight, with a T-max of 101.1F. Antibiotics in the form of Rocephin, patient will be started on oral Decadron, he is on breathing treatments, he is on prophylactic dose of Lovenox. CTA chest was completed in view of elevated d- dimer and chest discomfort on presentation showing patchy pulmonary bilateral airspace infiltrates, but no evidence of pulmonary embolism. On 05/10/2020 patient seen in follow-up. Doing well, coughing less, breathing comfortably, no complaints of chest pain today, room air pulse ox is 94-97%, patient did have a fever last night, afebrile this morning. Just a low-grade fever of 99.1F. Blood cultures show no growth. C. diff was negative, urine Legionella antigen was negative. His Covid 19 testing PCR is pending. Today's labs have been reviewed, showing white blood cell, 7.5, hemoglobin of 11.9, electrolytes are within normal limits, BUN was 8 and creatinine 0.9. Patient continues on oral Decadron, azithromycin and Rocephin, ID service is following. He is on prophylactic dose of Lovenox. He is on gentle IV hydration. Objective - Vital Signs Vital signs: Vital Signs Temp 99.1 F 05/10/20 07:00 Pulse 90 05/10/20 07:00 Resp 20 05/10/20 08:54 BP 164/54 05/10/20 07:00 Pulse Ox 94 L 05/10/20 07:00 Intake & Output 05/09/20 05/10/20 05/10/20 18:59 06:59 18:59 Intake Total 1080 750 Balance 1080 750 Weight 90.718 kg Intake: Intake, IV Titration 450 Amount Sodium Chloride 0.9% 1, 400 000 ml @ 100 mls/hr IV . Q10H [facility] Rx#:[id number] cefTRIAXone 2 gm In 50 Sodium Chloride 0.9% 50 ml @ 100 mls/hr IVPB Q24H [facility] Rx#:[id number] Oral 1080 300 Other: # Voids 3 1 # Bowel Movements 3 - Exam GENERAL EXAM: Alert, very pleasant, white male, on room air, with pulse ox of 94-97% comfortable in no apparent distress. HEAD: Normocephalic/atraumatic. EYES: Normal reaction of pupils, equal size. Conjunctiva pink, sclera white. NOSE: Clear with pink turbinates. THROAT: No erythema or exudates. NECK: No masses, no JVD, no thyroid enlargement, no adenopathy. CHEST: No chest wall deformity. Symmetrical expansion. LUNGS: Equal air entry with no crackles, wheeze, rhonchi or dullness. CVS: Regular rate and rhythm, normal S1 and S2, no gallops, no murmurs, no rubs ABDOMEN: Soft, nontender. No hepatosplenomegaly, normal bowel sounds, no guarding or rigidity. EXTREMITIES: No clubbing, no edema, no cyanosis, 2+ pulses and upper and lower extremities. MUSCULOSKELETAL: Muscle strength and tone normal. SPINE: No scoliosis or deformity SKIN: No rashes CENTRAL NERVOUS SYSTEM: Alert and oriented -3. No focal deficits, tone is normal in all 4 extremities. PSYCHIATRIC: Alert and oriented -3. Appropriate affect. Intact judgment and insight. - Labs CBC & Chem 7: 05/10/20 05:34 05/10/20 05:34 Labs: Abnormal Lab Results - Last 24 Hours (Table) 05/09/20 05/09/20 05/09/20 Range/Units 11:19 16:42 20:38 RBC (4.30-5.90) m/uL Hgb (13.0-17.5) gm/dL Hct (39.0-53.0) % Plt Count (150-450) k/uL BUN (9.0-27.0) mg/dL BUN/Creatinine Ratio (12.00-20.00) Ratio Glucose (70-110) mg/dL POC Glucose (mg/dL) 238 H 299 H (75-99) mg/dL Hemoglobin A1c 7.7 H (4.0-6.0) % Calcium (8.7-10.3) mg/dL 05/10/20 05/10/20 05/10/20 Range/Units 05:34 05:34 07:21 RBC 3.98 L (4.30-5.90) m/uL Hgb 11.9 L (13.0-17.5) gm/dL Hct 36.0 L (39.0-53.0) % Plt Count 454 H (150-450) k/uL BUN 8.0 L (9.0-27.0) mg/dL BUN/Creatinine Ratio 8.89 L (12.00-20.00) Ratio Glucose 228 H (70-110) mg/dL POC Glucose (mg/dL) 225 H (75-99) mg/dL Hemoglobin A1c (4.0-6.0) % Calcium 7.8 L (8.7-10.3) mg/dL 05/10/20 05/10/20 Range/Units 11:05 12:14 RBC (4.30-5.90) m/uL Hgb (13.0-17.5) gm/dL Hct (39.0-53.0) % Plt Count (150-450) k/uL BUN (9.0-27.0) mg/dL BUN/Creatinine Ratio (12.00-20.00) Ratio Glucose (70-110) mg/dL POC Glucose (mg/dL) 260 H 254 H (75-99) mg/dL Hemoglobin A1c (4.0-6.0) % Calcium (8.7-10.3) mg/dL Microbiology - Last 24 Hours (Table) 05/07/20 21:08 Blood Culture - Preliminary Blood No Growth after 48 hours Assessment and Plan Plan: Assessment: #1. Dyspnea, midsternal chest discomfort, cough, likely related to possibility of chemical pneumonitis after inhalation of carburetor tube cleaner 2 days prior to presentation. Chest x-ray showed left sided mild peripheral pulmonary infiltrat es. Patient has developed a fever in the last 24 hours, and his cough persists. Rule out possibility of COVID 19 pneumonitis. Legionella urine antigen was negative, Covid 19 PCR still pending, pro-calcitonin is negative at 0.09 #2. Elevated d-dimer, CT chest showed no evidence of pulmonary embolism, and showed patchy pulmonary bilateral airspace infiltrates. #3. Hypertension #4. Lipidemia #5. Diabetes mellitus type 2 #6. Lifetime nonsmoker #7. GERD/reflux Plan: Continue current medical treatment, still awaiting results of the COVID 19 PCR, febrile pattern has improved, procalcitonin level is negative. Continue oral Decadron, the cough and the breathing have improved. We'll continue to follow, monitor febrile pattern, if the Covid test comes back negative the patient is cl ear for discharge from pulmonary perspective. I performed a history & physical examination of the patient and discussed their management with my nurse practitioner, Bella Steel. I reviewed the nurse practitioner's note and agree with the documented findings and plan of care. Lung sounds are positive for diminlished breath sounds. The findings and the impression was discussed with the patient. I attest to the documentation by the nurse practitioner. Time with Patient: Less than 30
[2020-05-10 17:19] LABS: Glucose,Whole Blood 270 mg/dL (75-99)
[2020-05-10 20:31] LABS: Glucose,Whole Blood 333 mg/dL (75-99)
[2020-05-10] MEDS: ATORVASTATIN 20 MG TAB PO SCH (20:52)
[2020-05-10] MEDS: amLODIPine 5 MG TAB PO SCH (20:53)
[2020-05-10] MEDS ORDERED: AZITHROMYCIN 250 MG TAB PO SCH (22:30)
--- NOTE | 2020-05-10 23:08 | PN ---
PROGRESS NOTE DATE OF SERVICE: 05/10/2020 REASON FOR FOLLOW UP: Covid-19 infection, fever. INTERVAL HISTORY: Patient overall fever pattern has improved. The patient is currently afebrile. The patient is breathing comfortably on room air. Denies having any chest pain. No shortness of breath or cough. No nausea, vomiting, abdominal pain and the patient's diarrhea has improved. PHYSICAL EXAMINATION: Blood pressure 182/92 with a pulse of 96. Temperature 97.5. He is 96% on room air. General description is an elderly male lying in bed in no distress. Respiratory system: Unlabored breathing, clear to auscultation anteriorly. Heart S1, S2. Regular rate and rhythm. ABDOMEN: Soft, no tenderness. EXTREMITIES: No edema of the feet. LABS: Hemoglobin 11.8, white count 7.5, BUN of 8, creatinine 0.9. DIAGNOSTIC IMPRESSION AND PLAN: Patient admitted to the hospital with predominant gastrointestinal symptoms of diarrhea. The patient did have minimal respiratory symptoms, now with Covid-19 testing positive. However the patient is currently not hypoxemic and GI symptom has responded to current treatment of Lovenox. to continue and monitor clinical course closely. MMODL / IJN: [id number] /
[2020-05-11] MEDS: SODIUM CHLORIDE 0.9% 1,000 ML IV SCH ×2 (05:14→16:49)
[2020-05-11 06:29] LABS: Basophils % (A) 0 %; Eosinophils % (A) 0 %; HCT 41.5 % (39.0-53.0); HGB 13.5 gm/dL (13.0-17.5); Lymphocytes # (A) 0.7 k/uL (1.0-4.8); Lymphocytes % (A) 6 %; MCH 29.8 pg (25.0-35.0); MCHC 32.7 g/dL (31.0-37.0); MCV 91.3 fL (80.0-100.0); Mean Platelet Volume 6.9; Monocytes # (A) 0.6 k/uL (0-1.0); Monocytes % (A) 5 %; Neutrophils # (A) 10.4 k/uL (1.3-7.7); Neutrophils % (A) 88 %; Platelet Count 590 k/uL (150-450); RBC 4.54 m/uL (4.30-5.90); RDW 12.7 % (11.5-15.5); WBC 11.9 k/uL (3.8-10.6)
[2020-05-11 07:52] LABS: Glucose,Whole Blood 189 mg/dL (75-99)
[2020-05-11] MEDS: ENOXAPARIN 40 MG/0.4 ML SYRINGE SQ SCH (08:01)
[2020-05-11] MEDS: INSULIN ASPART (NovoLOG) 100 UNIT/ML VIAL SQ SCH ×3 (08:01→17:28)
[2020-05-11] MEDS: MULTIVITAMINS, THERA 1 EACH TAB PO SCH (08:02)
[2020-05-11] MEDS: DOCUSATE 100 MG CAP PO SCH (08:02)
[2020-05-11] MEDS: PANTOPRAZOLE 40 MG TABLET PO SCH (08:02)
[2020-05-11] MEDS: LINAGLIPTIN 5 MG TABLET PO SCH (08:02)
[2020-05-11] MEDS: SIMETHICONE 80 MG CHEWABLE PO SCH ×3 (08:02→17:29)
[2020-05-11] MEDS: amLODIPine 5 MG TAB PO SCH (08:02)
[2020-05-11] MEDS: dexAMETHasone 4 MG TAB PO SCH (08:02)
[2020-05-11] MEDS: CHOLESTYRAMINE (WITH SUGAR) 4 GM PACKET PO SCH ×3 (08:03→16:56)
[2020-05-11 08:24] VITALS: RESP 20
[2020-05-11] MEDS ORDERED: cloNIDine 0.3 MG/24HR PATCH TRANSDERM SCH (09:00)
[2020-05-11] MEDS ORDERED: ALBUTEROL HFA INHALER INHALATION PRN (09:08)
[2020-05-11 09:15] LABS: African American GFR (CKD) 83.2 (60.0-200.0); Anion Gap 11.1 mmol/L (4.00-12.00); C Reactive Protein 3.2 mg/dL (0.0-0.8); Calcium 8.7 mg/dL (8.7-10.3); Carbon Dioxide 23.9 mmol/L (21.6-31.8); Non-African American GFR(CKD) 71.8 (60.0-200.0)
[2020-05-11 11:23] LABS: Glucose,Whole Blood 283 mg/dL (75-99)
--- NOTE | 2020-05-11 12:52 | P.PN ---
Subjective Progress Note Date: 05/11/20 Principal diagnosis: Covid 19 pneumonitis 80-year-old white male patient, with past history of hypertension, diabetes mellitus type 2, hyperlipidemia, GERD/reflux, lifetime nonsmoker, who presented to the emergency department on 05/07/2020 for evaluation of shortness of breath, cough with the onset of 2 days prior to presentation. Apparently patient had inhaled some fumes from the antifreeze from his tractor when he was working on it. Immediately after she started experiencing burning in his midsternal pain and his esophagus, which had improved. He denied any fever or chills, denied any sweats, he did develop a cough, was nonproductive. Has no history of chronic lung disease and he is a lifetime nonsmoker. No nausea vomiting or diarrhea, he denies any cold 19 exposure. In the following 2 days patient became short of breath, started coughing, became weak, started having runs of diarrhea and generalized aches. [facility] department chest x-ray shows mild peripheral pulmonary infiltrate in the left lung. He CBC was reviewed showing no leukocytosis, but did show lymphopenia with the lymphocyte count of 0.4, d- dimer was elevated at 1.63, sodium was 127, potassium 3.7, chloride is 93, renal profile was within normal limits. Rectal Was 1.6, LDH was elevated at 860, troponin was 0.018, proBNP was 590, C. diff was negative. Patient is being tested for COVID 19, and the results are pending at this time, patient is on room air, the pulse ox of 93%, patient was initially afebrile, did develop fever overnight, with a T-max of 101.1F. Antibiotics in the form of Rocephin, patient will be started on oral Decadron, he is on breathing treatments, he is on prophylactic dose of Lovenox. CTA chest was completed in view of elevated d- dimer and chest discomfort on presentation showing patchy pulmonary bilateral airspace infiltrates, but no evidence of pulmonary embolism. On 05/10/2020 patient seen in follow-up. Doing well, coughing less, breathing comfortably, no complaints of chest pain today, room air pulse ox is 94-97%, patient did have a fever last night, afebrile this morning. Just a low-grade fever of 99.1F. Blood cultures show no growth. C. diff was negative, urine Legionella antigen was negative. His Covid 19 testing PCR is pending. Today's labs have been reviewed, showing white blood cell, 7.5, hemoglobin of 11.9, electrolytes are within normal limits, BUN was 8 and creatinine 0.9. Patient continues on oral Decadron, azithromycin and Rocephin, ID service is following. He is on prophylactic dose of Lovenox. He is on gentle IV hydration. The patient is seen today 05/11/2020 in follow-up on the regular medical floor. He is currently sitting up at the bedside. Awake and alert in no acute distress. He is maintaining O2 saturations in the mid 90s on room air. He's afebrile. Blood culture reveals no growth. Covid 19 testing positive. He's been initiated on dexamethasone. Lovenox for DVT prophylaxis. ID is on. Currently on antibiotics in the form of ceftriaxone and azithromycin. No further diarrhea. White count 11.9. Hemoglobin 13.5. The d-dimer 1.58. Sodium 137. Potassium 4.0. Creatinine 1.0. LDH 365. C-reactive protein 3.2. Pro-calcitonin 0.07. Objective - Vital Signs Vital signs: Vital Signs Temp 98.5 F 05/11/20 07:00 Pulse 96 05/11/20 07:00 Resp 20 05/11/20 07:00 BP 171/89 05/11/20 07:00 Pulse Ox 96 05/11/20 07:00 Intake & Output 05/10/20 05/11/20 05/11/20 18:59 06:59 18:59 Intake Total 300 300 Balance 300 300 Intake: Intake, IV Titration 0 Amount Sodium Chloride 0.9% 1, 0 000 ml @ 100 mls/hr IV . Q10H [facility] Rx#:[id number] Oral 300 300 Other: # Voids 3 2 2 - Exam GENERAL EXAM: Alert, very pleasant, male patient, on room air, with pulse ox of 96%, comfortable in no apparent distress. HEAD: Normocephalic/atraumatic. EYES: Normal reaction of pupils, equal size. Conjunctiva pink, sclera white. NOSE: Clear with pink turbinates. THROAT: No erythema or exudates. NECK: No masses, no JVD, no thyroid enlargement, no adenopathy. CHEST: No chest wall deformity. Symmetrical expansion. LUNGS: Equal air entry with no crackles, wheeze, rhonchi or dullness. CVS: Regular rate and rhythm, normal S1 and S2, no gallops, no murmurs, no rubs ABDOMEN: Soft, nontender. No hepatosplenomegaly, normal bowel sounds, no guarding or rigidity. EXTREMITIES: No clubbing, no edema, no cyanosis, 2+ pulses and upper and lower extremities. MUSCULOSKELETAL: Muscle strength and tone normal. SPINE: No scoliosis or deformity SKIN: No rashes CENTRAL NERVOUS SYSTEM: Alert and oriented -3. No focal deficits, tone is no rmal in all 4 extremities. PSYCHIATRIC: Alert and oriented -3. Appropriate affect. Intact judgment and insight. - Labs CBC & Chem 7: 05/11/20 05:47 05/11/20 05:47 Labs: Abnormal Lab Results - Last 24 Hours (Table) 05/10/20 05/10/20 05/11/20 Range/Units 17:16 20:29 05:47 WBC 11.9 H (3.8-10.6) k/uL Plt Count 590 H (150-450) k/uL Neutrophils # 10.4 H (1.3-7.7) k/uL Lymphocytes # 0.7 L (1.0-4.8) k/uL D-Dimer (<0.60) mg/L FEU BUN/Creatinine Ratio (12.00-20.00) Ratio Glucose (70-110) mg/dL POC Glucose (mg/dL) 270 H 333 H (75-99) mg/dL Lactate Dehydrogenase (120-246) U/L C-Reactive Protein (0.0-0.8) mg/dL 05/11/20 05/11/20 05/11/20 Range/Units 05:47 05:47 07:12 WBC (3.8-10.6) k/uL Plt Count (150-450) k/uL Neutrophils # (1.3-7.7) k/uL Lymphocytes # (1.0-4.8) k/uL D-Dimer 1.58 H (<0.60) mg/L FEU BUN/Creatinine Ratio 11.00 L (12.00-20.00) Ratio Glucose 197 H (70-110) mg/dL POC Glucose (mg/dL) 189 H (75-99) mg/dL Lactate Dehydrogenase 365 H (120-246) U/L C-Reactive Protein 3.2 H (0.0-0.8) mg/dL 05/11/20 Range/Units 11:21 WBC (3.8-10.6) k/uL Plt Count (150-450) k/uL Neutrophils # (1.3-7.7) k/uL Lymphocytes # (1.0-4.8) k/uL D-Dimer (<0.60) mg/L FEU BUN/Creatinine Ratio (12.00-20.00) Ratio Glucose (70-110) mg/dL POC Glucose (mg/dL) 283 H (75-99) mg/dL Lactate Dehydrogenase (120-246) U/L C-Reactive Protein (0.0-0.8) mg/dL Microbiology - Last 24 Hours (Table) 05/07/20 21:08 Blood Culture - Preliminary Blood No Growth after 72 hours Assessment and Plan Assessment: 1 Dyspnea secondary to acute CoVID 19 pneumonitis 2 hypertension 3 Hyperlipidemia 4 Diabetes mellitus 5 Gastric esophageal reflux disease 6 Lifelong nonsmoker Plan: The patient was seen and evaluated by Dr. Almendarez He is stable from the pulmonary standpoint, on room air Home treatment per ID services I, the cosigning physician, performed a history & physical examination of the patient. Lungs sounds are clear. Maintaining good O2 saturations in the 90s on room air. I discussed the assessment and plan of care with my nurse practitioner, Regina Mendosa. I attest to the above note as dictated by her.
--- NOTE | 2020-05-11 13:53 | PN ---
PROGRESS NOTE DATE OF SERVICE: 05/11/2020 REASON FOR FOLLOWUP VISIT: Acute COVID-19 infection. INTERVAL HISTORY: Patient is currently afebrile. Patient is breathing comfortably. Patient denies having any chest pain or shortness of breath. Very minimal cough. No nausea, no vomiting. No abdominal pain. The patient's diarrhea has improved, resolved. PHYSICAL EXAMINATION: Blood pressure 131/89 with a pulse of 96, temperature 98.5. He is 96% on room air. General description is an elderly male lying in bed in no distress. Respiratory system: Unlabored breathing, clear to auscultation anteriorly. Heart S1, S2. Regular rate and rhythm. ABDOMEN: Soft, no tenderness. LABS: Hemoglobin 13.5, white count 11.9, BUN of 11, creatinine 1.0. IMPRESSION/PLAN: Patient with acute COVID-19 infection predominant gastrointestinal symptoms. Respiratory status is stable. The patient has been insisting on going home. He will be able to go home on dexamethasone and Zithromax short course and close outpatient followup. MMODL / IJN: [id number] /
[2020-05-11] MEDS ORDERED: bisacodyL 5 MG TABLET.DR PO PRN (14:16)
[2020-05-11 15:26] VITALS: BP 163/93; PULSE 82; TEMP 98.4
--- NOTE | 2020-05-11 17:00 | P.PN ---
Subjective Progress Note Date: 05/10/20 Principal diagnosis: Shortness of breath, cough, chemical pneumonitis versus COVID 19 pneumonitis 80-year-old white male patient, with past history of hypertension, diabetes mamta itus type 2, hyperlipidemia, GERD/reflux, lifetime nonsmoker, who presented to the emergency department on 05/07/2020 for evaluation of shortness of breath, cough with the onset of 2 days prior to presentation. Apparently patient had inhaled some fumes from the antifreeze from his tractor when he was working on it. In the ED chest x-ray shows mild peripheral pulmonary infiltrate in the left lung. He CBC was reviewed showing no leukocytosis, but did show lymphopenia, d- dimer was elevated at 1.63, sodium was 127, potassium 3.7, LDH was elevated at 860, troponin was 0.018, proBNP was 590. Patient is being tested for COVID 19; Antibiotics in the form of Rocephin, patient remains on oral Decadron, he is on breathing treatments, he is on prophylactic dose of Lovenox. CTA chest was completed in view of elevated d- dimer and chest discomfort on presentation showing patchy pulmonary bilateral airspace infiltrates. Objective - Vital Signs Vital signs: Vital Signs Temp 99.1 F 05/10/20 07:00 Pulse 90 05/10/20 07:00 Resp 20 05/10/20 08:54 BP 164/54 05/10/20 07:00 Pulse Ox 94 L 05/10/20 07:00 Intake & Output 05/09/20 05/10/20 05/10/20 18:59 06:59 18:59 Intake Total 1080 750 Balance 1080 750 Weight 90.718 kg Intake: Intake, IV Titration 450 Amount Sodium Chloride 0.9% 1, 400 000 ml @ 100 mls/hr IV . Q10H [facility] Rx#:[id number] cefTRIAXone 2 gm In 50 Sodium Chloride 0.9% 50 ml @ 100 mls/hr IVPB Q24H [facility] Rx#:[id number] Oral 1080 300 Other: # Voids 3 1 # Bowel Movements 3 - Exam PHYSICAL EXAMINATION: GENERAL: The patient is alert and oriented x3, not in any acute distress. Well developed, well nourished. HEENT: Pupils are round and equally reacting to light. EOMI. No scleral icterus. No conjunctival pallor. Normocephalic, atraumatic. No pharyngeal erythema. No thyromegaly. CARDIOVASCULAR: S1 and S2 present. No murmurs, rubs, or gallops. PULMONARY: Scattered wheezing with occasional rhonchi. ABDOMEN: Soft, nontender, nondistended, normoactive bowel sounds. No palpable organomegaly. MUSCULOSKELETAL: No joint swelling or deformity. EXTREMITIES: No cyanosis, clubbing, or pedal edema. NEUROLOGICAL: Gross neurological examination did not reveal any focal deficits. SKIN: No rashes. - Labs CBC & Chem 7: 05/11/20 05:47 05/11/20 05:47 Labs: Abnormal Lab Results - Last 24 Hours (Table) 05/09/20 05/09/20 05/09/20 Range/Units 11:19 16:42 20:38 RBC (4.30-5.90) m/uL Hgb (13.0-17.5) gm/dL Hct (39.0-53.0) % Plt Count (150-450) k/uL BUN (9.0-27.0) mg/dL BUN/Creatinine Ratio (12.00-20.00) Ratio Glucose (70-110) mg/dL POC Glucose (mg/dL) 238 H 299 H (75-99) mg/dL Hemoglobin A1c 7.7 H (4.0-6.0) % Calcium (8.7-10.3) mg/dL 05/10/20 05/10/20 05/10/20 Range/Units 05:34 05:34 07:21 RBC 3.98 L (4.30-5.90) m/uL Hgb 11.9 L (13.0-17.5) gm/dL Hct 36.0 L (39.0-53.0) % Plt Count 454 H (150-450) k/uL BUN 8.0 L (9.0-27.0) mg/dL BUN/Creatinine Ratio 8.89 L (12.00-20.00) Ratio Glucose 228 H (70-110) mg/dL POC Glucose (mg/dL) 225 H (75-99) mg/dL Hemoglobin A1c (4.0-6.0) % Calcium 7.8 L (8.7-10.3) mg/dL 05/10/20 05/10/20 Range/Units 11:05 12:14 RBC (4.30-5.90) m/uL Hgb (13.0-17.5) gm/dL Hct (39.0-53.0) % Plt Count (150-450) k/uL BUN (9.0-27.0) mg/dL BUN/Creatinine Ratio (12.00-20.00) Ratio Glucose (70-110) mg/dL POC Glucose (mg/dL) 260 H 254 H (75-99) mg/dL Hemoglobin A1c (4.0-6.0) % Calcium (8.7-10.3) mg/dL Microbiology - Last 24 Hours (Table) 05/07/20 21:08 Blood Culture - Preliminary Blood No Growth after 48 hours Assessment and Plan Assessment: 1. Acute onset dyspnea; pneumonitis; possibly chemical; rule out COVID 19 pneumonitis - Chest x-ray shows left-sided right peripheral pulmonary infiltrates; covert 19 PCR is obtained and pending; Legionella urine antigen is negative; pro- calcitonin is 0.09 - CT of chest shows patchy pulmonary bilateral airspace infiltrates; PE is ruled out - Patient remains on antibiotics in form of Zithromax 250 mg daily along with ceftriaxone 2 g IV every 24 hours; dexamethasone 6 mg by mouth daily 2. Hyperlipidemia; Lipitor 20 mg by mouth daily at bedtime 3. Hypertension; Norvasc 5 mg daily; Catapres patch 0.3 mg 4. Diabetes mellitus type 2; glipizide 2.5 mg daily along with Cogentin 5 mg by mouth daily 5. Gastroesophageal reflux disease; Protonix 40 mg daily DVT prophylaxis; SCDs/ subcu Lovenox CODE STATUS; full code
[2020-05-11 17:20] LABS: Glucose,Whole Blood 281 mg/dL (75-99)
== END 2020-05-11 18:25 | disposition home or self-care (01) | DRG 871 ==
LOC: EC 18:41 → 4SSUR 21:23
PROVIDERS: ADMIT Internal Medicine; ATTEND Internal Medicine
DX: A41.89 Other specified sepsis (principal); U07.1 COVID-19; J12.89 Other viral pneumonia; E87.1 Hypo-osmolality and hyponatremia; E11.51 Type 2 diabetes mellitus with diabetic peripheral angiopathy without gangrene; D72.810 Lymphocytopenia; R19.7 Diarrhea, unspecified; E78.5 Hyperlipidemia, unspecified; K21.9 Gastro-esophageal reflux disease without esophagitis; I10 Essential (primary) hypertension; E86.1 Hypovolemia; M17.0 Bilateral primary osteoarthritis of knee; I83.93 Asymptomatic varicose veins of bilateral lower extremities; Z79.84 Long term (current) use of oral hypoglycemic drugs; Z79.899 Other long term (current) drug therapy; Z87.891 Personal history of nicotine dependence; Z87.39 Personal history of other diseases of the musculoskeletal system and connective tissue; Z86.010 Personal history of colon polyps; Z98.1 Arthrodesis status; Z98.890 Other specified postprocedural states; Z80.3 Family history of malignant neoplasm of breast
CPT/HCPCS: 36415; 71046; 71275; 80048; 80053; 82550; 83036; 83605; 83615; 83735; 83880; 84145; 84484; 85025; 85027; 85379; 85610; 85730; 86140; 87040; 87324; 87449; 90686; 93005; 94640; 96361; 96365; 96367; 96375; 99285